=== PATIENT | male | born 2000 | race Caucasian/White ===

== ENCOUNTER 2019-04-29 11:45 | Emergency (ER) | payer OTHER ==
[2019-04-29 11:58] VITALS: BP 116/72; PULSE 106; BMI 20.5
--- NOTE | 2019-04-29 12:26 | PDOC ---
History of Present Illness - General Chief Complaint: Seizure Stated Complaint: SEIZURE - History of Present Illness Initial Comments: Maik Cope is a 18yo man with a PMH of grand mal seizures starting at age 13 , currently taken off antiepileptics per his neurologist, who presents following a seizure today. The beginning of the seizure was not witnessed, but family was present after the first few seconds. Per family, Maik was brushing his teeth when the seizure started. He seemed to have fallen forward, hit his chin on the sink, and fell into the shower curtain which reportedly prevented any other significant impact. His family witnessed him having whole- body shaking similar to previous seizures. The episode lasted about a minute. He was confused for about 15 minutes afterwards but has since returned to baseline. Currently, Maik reports headache, which he has typically after seizures. He also reports pain in the left side of his neck with head movement. His father also notes that he has a rash over his neck and chest that he did not see previously. Maik had an episode of vomiting on the way to the hospital but now denies any nausea. He additionally denies any visual changes, focal weakness , numbness/tingling, neck stiffness, or other neurological symptoms. He reports that he has been studying for college midterms this week and has been sleeping much less than normal for several days. He has otherwise been well and denies any recent or current URI symptoms or any other infections. Past History - Past Medical History Allergies/Adverse Reactions: Allergies Allergy/AdvReac Type Severity Reaction Status Date / Time No Known Allergies Allergy Verified 03/28/15 02:17 Home Medications: Ambulatory Orders levETIRAcetam [Keppra Xr -] 500 mg PO DAILY #60 tab.er.24h 03/28/15 levETIRAcetam [Levetiracetam ER] 500 mg PO DAILY #60 tab.er.24h 03/28/15 Divalproex Sodium [Depakote] 500 mg PO BID 30 Days #60 tablet. 04/29/19 COPD: No Seizures: Yes - Immunization History Immunization Up to Date: Yes - Psycho Social/Smoking Cessation Hx Smoking History: Never smoked Have you smoked in the past 12 months: No Information on smoking cessation initiated: No Hx Alcohol Use: No Drug/Substance Use Hx: No Substance Use Type: None Review of Systems - Review of Systems Comments:: General: No fevers, no chills, no weight or appetite change, no malaise HEENT: No changes in vision, no changes in hearing, no congestion, no sore throat. +AWAD CV: No chest pain, no palpitations, no LE edema Pulm: No SOB, no cough, no wheezing GI: No nausea or vomiting, no change in bowel habits, no melena : No frequency, no urgency, no dysuria Musc: No back pain, no joint swelling, no recent injury Skin: +rash, no lesions, no erythema Endo: No excessive thirst, no heat/cold intolerance Heme: No unusual bruising or bleeding, no swollen glands Neuro: No syncope, no numbness/tingling, no focal weakness. +Seizure Vasc: No claudication Psych: No recent change in mood, no SI or HI *Physical Exam - Vital Signs Last Vital Signs Temp Pulse Resp BP Pulse Ox 97.8 F 106 H 20 116/72 96 04/29/19 11:55 04/29/19 11:55 04/29/19 11:55 04/29/19 11:55 04/29/19 11:55 - Physical Exam General: Comfortable, no acute distress HEENT: PERRL, EOMI, MMM, voice normal, normal neck ROM. Neck supple. Left posterior cervical paraspinal TTP Cards: RRR, no murmur appreciated Pulm: Comfortable on room air, clear to auscultation bilaterally Abd: Soft, nontender, nondistended Ext: Atraumatic. No LE edema. ROM intact. Strength 5/5 and equal bilaterally Vasc: Extremities WWP. Skin: Normal color. Petichial-type rash on neck and upper chest. Neuro: A&Ox3, CN grossly intact, normal speech, motor/sensory grossly intact and symmetric Psych: Mood appropriate to situation ED Treatment Course - LABORATORY CBC & Chemistry Diagram: 04/29/19 13:05 04/29/19 13:05 Medical Decision Making - Medical Decision Making 04/29/19 12:26 Maik Cope is a 18yo man with a PMH of grand mal seizures starting at age 13 , currently taken off anti-epileptics per his neurologist, who presents following a seizure today. Per his family, it appeared to be his typical seizure ; he was post-ictal for about 15 minutes but has since returned to baseline. He does report headache, left-sided neck pain w/o stiffness, and has a rash on the chest and neck. He denies fever, sick contacts, or any focal neurological symptoms. - H/o seizures, no longer medicated, likely due to known seizure disorder. May have also been precipitated by sleep loss - Will contact pt's regular neurologist, Dr Vanita Thomas, ([phone]) - No fever, infectious symptoms, neck stiffness or other symptoms concerning for underlying infection, but will monitor rash. Most likely secondary either to seizure or vomiting. 04/29/19 13:14 - Spoke to pt's neurologist. Reports that pt was previously on keppra and depakote but had been seizure free for over 3 years when she last saw him in June. He has been tapering off his medications, taper completed in November. She is recommending loading depakote 1g, restarging 500mg BID for home. She will follow up with him as an outpatient. - CBC, CMP for evaluation given rash, AWAD, seizure. No fever or neck stiffness, low suspicion for meningitis, but will evaluate and monitor in the ED 04/29/19 14:33 - Labs without concerning abnormalities - Pt reports continued headache. Acetaminophen ordered. 04/29/19 15:06 - Plan to d/c home after acetaminophen as pt appears clinically improved Discussed with Dr Aj Saul PGY2 Discharge - Discharge Information Problems reviewed: Yes Clinical Impression/Diagnosis: Seizure Condition: Stable - Admission No - Additional Discharge Information Prescriptions: Divalproex Sodium [Depakote] 500 mg PO BID 30 Days #60 tablet. - Follow up/Referral Referrals: Leann Joshua [Primary Care Provider] - - Patient Discharge Instructions Additional Instructions: Discharge Instructions: You were seen in the emergency department following a seizure. You had no abnormalities on your blood tests. Your neurologist was contacted. You were given a dose of depakote IV while in the hospital. You will need to start taking depakote 500mg twice per day at home. Follow up with your neurologist within the next week for evaluation and to see if your medications need to be adjusted. Seek immediate care if you have any worsening symptoms, you develop fever, you have any neurological symptoms (such as one-sided weakness, changes in vision, confusion), you have neck stiffness, or you have any other medical emergency. - Post Discharge Activity Work/Back to School Note: Back to School
[2019-04-29] MEDS ORDERED: VALPROATE SODIUM 500 MG/5 ML VIAL IVPB ONE (12:50)
[2019-04-29 12:53] VITALS: TEMP 98.2
[2019-04-29] MEDS ORDERED: VALPROATE SODIUM 500 MG/5 ML VIAL ONE (13:01)
[2019-04-29 13:48] LABS: BASO % 0.2 % (0-2.0); HEMATOCRIT 46.8 % (35.4-49); HEMOGLOBIN 16.2 GM/dL (11.7-16.9); MCH 30.1 pg (25.7-33.7); MCHC 34.6 g/dl (32.0-35.9); MEAN PLT VOLUME 10.3 fl (7.5-11.1); MONO % 4.6 % (3.8-10.2); NEUT % 88.2 % (42.8-82.8); PLATELET COUNT 182 K/MM3 (134-434); RBC 5.38 M/mm3 (4.00-5.60); RDW 12.9 % (11.9-15.9); WHITE BLOOD COUNT 10.5 K/mm3 (4.0-10.0)
[2019-04-29 14:23] LABS: ALBUMIN 4.2 g/dl (3.4-5.0); BILIRUBIN,TOTAL 1.2 mg/dL (0.2-1); BLOOD UREA NITROGEN 14.1 mg/dL (7-18); CREATININE 0.8 mg/dL (0.55-1.3); POTASSIUM 3.6 mmol/L (3.5-5.1); TOT PROT 7.5 g/dl (6.4-8.2)
[2019-04-29] MEDS ORDERED: ACETAMINOPHEN 1000 MG/100 ML VIAL (NON FORMULARY) IVPB ONE (14:39)
[2019-04-29] MEDS ORDERED: ACETAMINOPHEN INJECTION 100 ML IVPB ONE (15:14)
--- NOTE | 2019-04-29 15:28 | PDOC ---
Documentation entered by Lurdes Larson SCRIBE, acting as scribe for Vish Rocha MD. Vish Rocha MD: This documentation has been prepared by the Marsha hernandez Brenda, SCRIBE, under my direction and personally reviewed by me in its entirety. I confirm that the documentation accurately reflects all work, treatment, procedures, and medical decision making performed by me. Attending Attestation - Resident Resident Name: DorysJenny - ED Attending Attestation I have performed the following: I have examined & evaluated the patient, The case was reviewed & discussed with the resident, I agree w/resident's findings & plan, Exceptions are as noted - HPI HPI: 04/29/19 16:09 18 years old past medical history of seizures are 13 of epileptics 18 years old past medical history significant for seizures off antiepileptics presents to the ED with generalized tonic-clonic seizure No fever mild headache which is normal no neck pain - Physicial Exam PE: 04/29/19 16:10 With thatVitals: Triage Vital signs reviewed General Appearance: No acute distress, well nourished well developed, Head: Atraumatic, Cardiac: Regular rate and rhythym, no murmurs, no rubs, no gallops, Lungs: Clear to auscultation bilateral, good air movement bilaterally, Abdomen: Soft, non distended, normal bowel sounds, non tender to palpation Extremities: Full range of motion to all extremities, no cyanosis, clubbing, or edema Skin: Warm and dry, no rashes or lesions, no rash, no petechiae Neuro: AOX3; cranial Nerves 2-12 grossly intact, strength intact to all extremities, sensation intact to all extremities, gait normal Psych: Normal mood, normal affect - Medical Decision Making 04/29/19 16:18 Well-appearing no apparent distress normal neurologic examination neck is supple breakthrough seizure slight rash to chest likely secondary to seizure or one episode of vomiting It is not spreading Reevaluation patient observed in the emergency department for 4-1/2 hours feels better very mild headache which he states is normal after seizure his neck remains supple. Very low suspicion for meningitis at this time. He was given very strict return instructions to return to the ED for any fever severe worsening headache neck pain or stiffness or for any concerns otherwise he will follow-up with his doctor this week.
== END 2019-04-29 16:12 | disposition home or self-care (01) ==
LOC: JER 11:45
PROC: 3E033NZ Introduction of Analgesics, Hypnotics, Sedatives into Peripheral Vein, Percutaneous Approach (ICD-10-PCS; principal; 2019-04-29)
PROC: 3E033GC Introduction of Other Therapeutic Substance into Peripheral Vein, Percutaneous Approach (ICD-10-PCS; 2019-04-29)
DX: R56.9 Unspecified convulsions (principal)
CPT/HCPCS: 36415; 80053; 85025; 99284-25; J0131

== ENCOUNTER 2020-10-24 02:06 | Emergency (ER) | payer OTHER ==
[2020-10-24 02:18] VITALS: BP 135/72; PULSE 86; TEMP 98.2; BMI 24.2
== END 2020-10-24 04:15 | disposition home or self-care (01) ==
LOC: JER 02:06
DX: S92.354A Nondisplaced fracture of fifth metatarsal bone, right foot, initial encounter for closed fracture (principal); Y30.XXXA Falling, jumping or pushed from a high place, undetermined intent, initial encounter
CPT/HCPCS: 73610-TC-RT-FY; 73630-TC-RT-FY; 99283-25